=== PATIENT | female | born 1950 | race Caucasian/White ===

== ENCOUNTER 2023-02-12 13:32 | Outpatient (REF) | payer MEDICARE, SELFPAY ==
[2023-02-12 16:45] LABS: ALT 22 U/L (14-59); AST 19 U/L (15-37); Albumin 3.9 g/dL (3.4-5.0); Alkaline Phosphatase 91 U/L (46-116); Anion Gap 8.8 mmol/L (3-11); BUN 10 mg/dL (7-18); Bilirubin, Total 0.6 mg/dL (0.2-1.0); CO2 27.2 mmol/L (21.0-32.0); CREATININE 0.6 mg/dL (0.55-1.02); Calcium 9.7 mg/dL (8.5-10.1); Calculated LDL 132 mg/dL (<100); Chloride 104 mmol/L (98-107); Cholesterol 207 mg/dL (<200); Glucose 84 mg/dL (74-106); HDL Cholesterol 68 mg/dL (40-60); Magnesium 1.9 mg/dL (1.8-2.4); Potassium 3.7 mmol/L (3.5-5.1); Sodium 140 mmol/L (136-145); Total Protein 7.1 g/dL (6.4-8.2); Triglyceride 39 mg/dL (<150); Vitamin B12 674 pg/mL (193-986)
[2023-02-12 17:00] LABS: Folate > 20.0 ng/mL (8.6-20.0)
== END 2023-02-12 13:33 | disposition home or self-care (01) ==
LOC: NCHCN 13:32
PROVIDERS: Visit Provider Family Medicine
DX: R25.2 Cramp and spasm (principal); Z13.220 Encounter for screening for lipoid disorders; R03.0 Elevated blood-pressure reading, without diagnosis of hypertension
CPT/HCPCS: 80053; 80061; 82607; 82746; 83735

== ENCOUNTER 2024-04-08 12:17 | Outpatient (REF) | payer MEDICARE, SELFPAY ==
[2024-04-08 17:11] LABS: Vitamin B12 > 2000 pg/mL (193-986)
== END 2024-04-08 12:18 | disposition home or self-care (01) ==
LOC: NCHCN 12:17
PROVIDERS: Visit Provider Family Medicine
DX: E53.8 Deficiency of other specified B group vitamins (principal)
CPT/HCPCS: 82607

== ENCOUNTER 2024-04-16 21:01 | Outpatient (REF) | payer MEDICARE, SELFPAY ==
[2024-04-16 21:58] LABS: Vitamin B12 1404 pg/mL (193-986)
== END 2024-04-16 21:02 | disposition home or self-care (01) ==
LOC: NCHCN 21:01
PROVIDERS: Visit Provider Family Medicine
DX: E53.8 Deficiency of other specified B group vitamins (principal)
CPT/HCPCS: 82607